=== PATIENT | female | born 1980 | race Caucasian/White ===

== ENCOUNTER 2018-09-14 18:00 | Inpatient (IN) | END 2018-09-16 15:18 | disposition home or self-care (01) | DRG 833 ==

== ENCOUNTER 2018-09-17 14:10 | Inpatient (IN) | END 2018-09-25 18:09 | disposition home or self-care (01) | DRG 788 ==

== ENCOUNTER 2018-10-07 09:26 | Emergency (ER) | END 2018-10-07 12:24 | disposition home or self-care (01) ==